=== PATIENT | female | born 1955 | race Caucasian/White ===

== ENCOUNTER → 2016-05-21 | Outpatient (CLI) | payer OTHER | LOC: COL.RAD 14:12 | DX: I82.811 Embolism and thrombosis of superficial veins of right lower extremity (principal); M79.604 Pain in right leg; R60.0 Localized edema ==

== ENCOUNTER → 2016-06-30 | Outpatient (CLI) | payer OTHER | LOC: BHSO 11:04 | DX: F33.42 Major depressive disorder, recurrent, in full remission (principal) ==

== ENCOUNTER → 2016-08-29 | Outpatient (CLI) | payer OTHER | LOC: BHSO 15:40 | DX: F43.10 Post-traumatic stress disorder, unspecified (principal) ==

== ENCOUNTER → 2017-06-08 | Outpatient (CLI) | payer BC, OTHER | LOC: BHSO 08:01 | DX: F33.42 Major depressive disorder, recurrent, in full remission (principal) | CPT/HCPCS: G0463 ==

== ENCOUNTER → 2017-11-22 | Outpatient (CLI) | payer BC, OTHER | LOC: BHSO 15:23 | DX: F43.10 Post-traumatic stress disorder, unspecified (principal) | CPT/HCPCS: G0463 ==

== ENCOUNTER → 2018-09-04 | Outpatient (CLI) | payer BC, OTHER | LOC: BHSO 08:00 | DX: F43.10 Post-traumatic stress disorder, unspecified (principal) | CPT/HCPCS: G0463 ==